=== PATIENT | male | born 1940 | race African-American/Black ===

== ENCOUNTER 2017-11-14 11:59 | Outpatient (CLI) | payer MEDICARE, MEDICAID ==
[2017-11-14 13:05] LABS: Hemoglobin 12.8 g/dL (14.0-18.0); Mean Corpuscular HGB CONC 32.1 g/dL (32.0-36.0); Mean Corpuscular Hemoglobin 22.9 pg (27.0-31.0); Mean Corpuscular Volume 71.4 fl (80.0-94.0); Mean Platelet Volume 8.6 fL (7.4-10.4); Platelet Count 234 thou/uL (130-400); RBC Distribution Width 13.3 % (11.5-14.5); Red Blood Cell (RBC) Count 5.58 mill/uL (4.70-6.10); White Blood Cell (WBC) Count 3.2 thou/uL (4.8-10.8)
[2017-11-14 13:17] LABS: Anion Gap 11 mmol/L (10-20); BUN (Urea Nitrogen) 11 mg/dL (8.4-25.7); Calc. Creatinine Clearance 0 mL/min (70-130); Calcium 9.9 mg/dL (7.8-10.44); Carbon Dioxide 26 mmol/L (23-31); Chloride 105 mmol/L (98-107); Estimated GFR-MDRD Greater than 90; Glucose 88 mg/dL (83-110); Potassium 4.2 mmol/L (3.5-5.1); Sodium 138 mmol/L (136-145)
== END 2017-11-14 12:00 | disposition home or self-care (01) ==
LOC: LABBT 11:59
PROVIDERS: ATTEND Internal Medicine Cardiovascular Disease
DX: Z01.812 Encounter for preprocedural laboratory examination (principal)
CPT/HCPCS: 80048; 85027

== ENCOUNTER → 2017-11-17 | Day surgery (SDC) | payer MEDICARE, MEDICAID ==
[2017-11-14 09:53] VITALS: BMI 21.4
[~2017-11-17] MED LIST: Diazepam 5 MG TAB ONE; Fentanyl 100 MCG/2 ML VIAL ONE; Iopamidol 370 76% 100 ML VIAL ONE; Lidocaine 1% (PF) 30 ML VIAL ONE; Midazolam HCl 2 mg/2 ml Vial ONE
== END ==
LOC: CCL 05:56
PROVIDERS: ATTEND Internal Medicine Cardiovascular Disease
PROC: 4A023N7 Measurement of Cardiac Sampling and Pressure, Left Heart, Percutaneous Approach (ICD-10-PCS; principal; 2017-11-17)
DX: I25.10 Atherosclerotic heart disease of native coronary artery without angina pectoris (principal); I10 Essential (primary) hypertension; E78.00 Pure hypercholesterolemia, unspecified; I25.2 Old myocardial infarction; Z79.899 Other long term (current) drug therapy; Z86.73 Personal history of transient ischemic attack (TIA), and cerebral infarction without residual deficits; Z82.49 Family history of ischemic heart disease and other diseases of the circulatory system
CPT/HCPCS: 76942; 93458; C1769; 99152; 99153; J1644; J2001; J2250; J3010

== ENCOUNTER 2017-11-25 05:34 | Inpatient (IN) | payer MEDICARE, MEDICAID ==
[2017-11-25] MEDS ORDERED: Albumin 5% 500 ML ONE (06:30)
[2017-11-25] MEDS ORDERED: Heparin 10,000 UNITS/1 ML VIAL 30,000 UNITS in Sodium Chloride 0.9% 1,000 ML FS SCH (06:45)
[2017-11-25] MEDS ORDERED: Midazolam HCl 2 mg/2 ml Vial ONE (06:47)
[2017-11-25] MEDS ORDERED: Fentanyl 100 MCG/2 ML VIAL ONE ×2 (06:47→07:08)
[2017-11-25] MEDS ORDERED: CEFAZOLIN/Water 2 GM/20 ML SYRINGE ONE (06:51)
[2017-11-25] MEDS ORDERED: Midazolam HCl 5 mg/5 ml Vial ONE (07:06)
[2017-11-25] MEDS ORDERED: Norepinephrine 8 MG/0.9% NS 0 ML ONE (07:07)
[2017-11-25] MEDS ORDERED: Nitroglycerin 50 MG/250 ML BOT 0 ML ONE (07:07)
[2017-11-25] MEDS ORDERED: Phenylephrine HCL 10 MG/ML VIAL ONE (07:07)
[2017-11-25] MEDS ORDERED: Vecuronium 10 MG VIAL ONE ×2 (07:07→11:20)
[2017-11-25] MEDS ORDERED: Promethazine HCl 25 MG/ML VIAL IM PRN (10:31)
[2017-11-25] MEDS ORDERED: Norepinephrine 8 MG/0.9% NS 250 ML IVPB PRN (10:31)
[2017-11-25] MEDS ORDERED: Post-Op Insulin Drip Protocol IVPB ONE (10:31)
[2017-11-25] MEDS ORDERED: Acetaminophen 325 MG TAB PO PRN (10:31)
[2017-11-25] MEDS ORDERED: Mag-Al 1200 mg/1200 mg/30 ML UDCUP PO PRN (10:31)
[2017-11-25] MEDS ORDERED: Magnesium 2 GM/NS 0.9% 100 ML 2 GM in Premix Bag 1 BAG IVPB SCH (10:31)
[2017-11-25] MEDS ORDERED: Bisacodyl 10 MG SUPP PR PRN (10:31)
[2017-11-25] MEDS ORDERED: Nitroglycerin 50 MG/250 ML BOT 250 ML IVPB PRN (10:31)
[2017-11-25] MEDS ORDERED: Ondansetron HCl/PF 4 MG/2 ML Vial IVP PRN (10:31)
[2017-11-25] MEDS ORDERED: Potassium Chloride 20 MEQ/100 ML PREMIX BAG IVPB PRN (10:31)
[2017-11-25] MEDS ORDERED: Morphine 4 MG/ML VIAL SLOW IVP PRN (10:31)
[2017-11-25] MEDS ORDERED: hydrALAZINE 20 MG/ML VIAL SLOW IVP PRN ×2 (10:31→19:21)
[2017-11-25] MEDS ORDERED: Hetastarch 6% 500 ML 500 ML IVPB PRN (10:31)
[2017-11-25] MEDS ORDERED: Bisacodyl 5 MG TAB PO PRN (10:31)
[2017-11-25] MEDS ORDERED: Guaifenesin DM 100-10/5 ML UDCUP PO PRN (10:31)
[2017-11-25] MEDS ORDERED: Fentanyl 100 MCG/2 ML VIAL SLOW IVP PRN (10:31)
[2017-11-25 10:40] LABS: Actual Bicarbonate (HCO3a) 21.1 mEq/L (22-26); Base Excess (BEa) -2.7 mEq/L (0 (+/-) 2.5); CO2 Tension 32.2 mmHg (35.0-45.0); Hematocrit-ABG 27.9 % (42.0-52.0); Hemoglobin (Hb) 8.9 g/dL (14.0-18.0); O2 Tension (PaO2) 341.3 mmHg (80.0-100.0); pH, Arterial 7.43 (7.35-7.45)
[2017-11-25 10:42] LABS: Calcium, Ionized 1.2 mmol/L (1.12-1.30); Puncture Site LINE
[2017-11-25] MEDS ORDERED: Dextrose 5% in Water 1,000 ML IV PRN (10:42)
[2017-11-25] MEDS ORDERED: Dextrose 50% Abboject 50 ML SYRINGE SLOW IVP PRN (10:42)
--- NOTE | 2017-11-25 10:49 | OP ---
DATE OF PROCEDURE: 11/25/2017 PREOPERATIVE DIAGNOSES: Coronary artery disease/hypertension/hyperlipidemia/status post-remote myoca rdial infarction with stenting of the LAD and right coronary artery at that time. POSTOPERATIVE DIAGNOSES: Coronary artery disease/hypertension/hyperlipidemia/status post-remote myoc ardial infarction with stenting of the LAD and right coronary artery at that time. PROCEDURES PERFORMED: Coronary artery bypass grafting x2: 1. Left internal mammary artery to 2.5 mm LAD - good conduit and target. 2. Reverse saphenous vein to 2.5 mm RCA - good conduit and target. SURGEON: Dr. Dylan Natarajan and Dr. Jj Ambriz. ANESTHESIA: General endotracheal - Dr. Rekha Yusuf. PUMP TIME: Forty minutes. CROSS-CLAMP TIME: Twenty minutes. LOW CORE TEMPERATURE: 34 degrees Celsius. TRAINING INTERN: Yola Bourne. DRAINS: 24-[place] chest tubes x2. DRIPS: None. TRANSFUSIONS: None. DESCRIPTION OF PROCEDURE: After consent was obtained, the patient was brought to the operating room and placed in supine position on the operating room table. Appropriate anesthetic monitor was placed and general endotracheal anesthesia induced. Chest, abdomen, and legs were prepped and draped in a usual sterile fashion. Greater saphenous vein was harvested from the left thigh through skip incisio ns. Wounds were irrigated and closed in layers. Median sternotomy was performed. Left internal manjit paul artery was harvested as a pedicle graft. The patient was systemically heparinized. Distal pedi deni was divided and infused with papaverine. Thymic fat and pericardium were divided with electrocau shawn. Pericardial stay sutures were placed. After adequate heparinization, aortic and atrial cannul ation was performed. The patient underwent retrograde prime. The patient was placed on cardiopulmon aster bypass. Distal targets were marked. Aortic cross-clamp was applied and antegrade sanguinous car dioplegic arrest obtained. One liter of antegrade cold [place] cardioplegia was given. Topical col d solution was used. Reverse saphenous vein was anastomosed to the distal RCA in end-to-side fashion with running 7-0 Prolene suture. Anastomosis tested and was hemostatic. Mammary artery was brought through a window in the pericardium and anastomosed to the LAD in end-to-side fashion with running 7 -0 Prolene suture. Anastomosis was tested and was hemostatic. On release of the mammary clamp, ther e was good hemostasis and good distal flow. Pedicle was secured with interrupted 6-0 Prolene suture. Cross-clamp was removed and partial occluding clamp placed. Saphenous vein was anastomosed to punc h site in the aorta with running 6-0 Prolene suture. Partial occluding clamp was removed and grafts deaired. Anastomoses were inspected for hemostasis, which was good. The patient was warmed and wean ed from cardiopulmonary bypass. After resumption of sinus rhythm, good hemodynamics, temperature gre ater than 36.5, bypass was discontinued. Transfusions were given. Protamine was administered. Deca nnulation was performed. Pursestring sutures secured. The 24-[place] chest tubes were placed in the mediastinum x2. After adequate hemostasis had been obtained, sternum was treated with vancomycin pas te. Sternum was closed with #7 wire. Sternum was treated with platelet-rich plasma and wires twiste d. Wounds were irrigated, treated with platelet-poor plasma, and closed in multiple layers. Needle, sponge, and instrument counts were all reported as correct at the end of the procedure. The patient was transferred to the intensive care unit in stable, but critical condition.
[2017-11-25 10:56] LABS: INR-International Normal Ratio 1.4; PTT 32.7 SEC (22.9-36.1)
[2017-11-25 11:06] LABS: Anion Gap 11 mmol/L (10-20); BUN (Urea Nitrogen) 14 mg/dL (8.4-25.7); Calc. Creatinine Clearance 80 mL/min (70-130); Calcium 8.4 mg/dL (7.8-10.44); Carbon Dioxide 20 mmol/L (23-31); Chloride 112 mmol/L (98-107); Estimated GFR-MDRD Greater than 90; Glucose 89 mg/dL (83-110); Potassium 3.8 mmol/L (3.5-5.1); Sodium 139 mmol/L (136-145)
[2017-11-25 11:13] LABS: #Eosinphils 0.1 thou/uL (0.0-0.7); #Lymphocytes 1.3 thou/uL (1.20-3.40); #Monocytes 0.4 thou/uL (0.11-0.59); #Neutrophils 4.5 thou/uL (1.40-6.50); %Basophils 0.7 % (0.0-1.0); %Lymphocytes 20.7 % (21.0-51.0); %Monocytes 6.1 % (0.0-10.0); %Neutrophils 71.5 % (42.0-75.0); Hemoglobin 9.2 g/dL (14.0-18.0); Mean Corpuscular HGB CONC 31.8 g/dL (32.0-36.0); Mean Corpuscular Hemoglobin 23.1 pg (27.0-31.0); Mean Corpuscular Volume 72.7 fl (80.0-94.0); Mean Platelet Volume 9.9 fL (7.4-10.4); Platelet Count 119 thou/uL (130-400); RBC Distribution Width 13.3 % (11.5-14.5); Red Blood Cell (RBC) Count 3.98 mill/uL (4.70-6.10); White Blood Cell (WBC) Count 6.3 thou/uL (4.8-10.8)
[2017-11-25] MEDS ORDERED: Protamine Sulfate 250 MG/25 ML VIAL ONE (11:20)
[2017-11-25] MEDS ORDERED: Calcium Chloride 1 GM/10 ML Abboject SYRINGE ONE (11:20)
[2017-11-25] MEDS ORDERED: Sodium Bicarb 50 MEQ/50 ML VIAL ONE (11:20)
[2017-11-25] MEDS ORDERED: Potassium Chloride 60 MEQ/30 ML VIAL ONE (11:20)
[2017-11-25] MEDS ORDERED: Magnesium 5 GM/10 ML VIAL ONE (11:20)
[2017-11-25] MEDS ORDERED: Heparin 30,000 units/30 ml VIAL ONE (11:20)
[2017-11-25] MEDS ORDERED: PROPOFOL 200 MG/20 ML VIAL ONE (11:20)
[2017-11-25] MEDS ORDERED: Aminocaproic Acid 5 GM/20 ML VIAL ONE (11:20)
[2017-11-25] MEDS ORDERED: Heparin 5,000 UNITS/ML VIAL ONE (11:20)
[2017-11-25] MEDS ORDERED: Lidocaine 2% PF 100 mg/5 ml Syringe ONE (11:20)
[2017-11-25] MEDS ORDERED: Dexamethasone 20 MG/5 ML VIAL ONE (11:20)
[2017-11-25] MEDS ORDERED: Lidocaine 1% PF 5 ML VIAL ONE (11:20)
[2017-11-25] MEDS ORDERED: PHENYLEPHRINE-NS 100 MCG/ML 10 ML SYRINGE ONE (11:20)
[2017-11-25] MEDS ORDERED: Thrombin 5000 UNITS/5 ML VIAL ONE (11:20)
[2017-11-25] MEDS ORDERED: Papaverine 60 MG/2 ML VIAL ONE (11:20)
[2017-11-25] MEDS: NS 0.9% w/ 20 MEQ KCL 1,000 ML IV SCH ×2 (11:47→21:11)
--- NOTE | 2017-11-25 12:37 | RAD ---
SINGLE VIEW CHEST: Date: 11/25/17 COMPARISON: None. HISTORY: Open heart surgery. FINDINGS: Single view of the chest shows normal sized cardiomediastinal silhouette. The patient is status post sternotomy. An endotracheal tube is seen with its tip between the clavicles. A right-sided central ve nous catheter is seen with its tip at the superior vena cava. A mediastinal drain and left chest tube are in good position. No pneumothorax seen. No evidence of consolidation, mass, or pleural effusion. IMPRESSION: Appropriate position of lines and tubes status post sternotomy. POS: [facility]
[2017-11-25] MEDS: CEFAZOLIN/Water 2 GM/20 ML SYRINGE SLOW IVP SCH ×2 (14:51→23:28)
[2017-11-25] MEDS: Insulin Regular 300 UNITS/3 ML VIAL SC PRN ×2 (15:00→21:08)
[2017-11-25 15:14] LABS: Actual Bicarbonate (HCO3a) 19.7 mEq/L (22-26); Base Excess (BEa) -4.6 mEq/L (0 (+/-) 2.5); CO2 Tension 32.7 mmHg (35.0-45.0); O2 Tension (PaO2) 209.4 mmHg (80.0-100.0)
[2017-11-25 15:15] LABS: ALV-art Gradient 34.925 (0-20); Calcium, Ionized 1.2 mmol/L (1.12-1.30); Hematocrit-ABG 30.4 % (42.0-52.0); Hemoglobin (Hb) 9.4 g/dL (14.0-18.0); Puncture Site LINE
[2017-11-25] MEDS: Fentanyl 100 MCG/2 ML VIAL SLOW IVP PRN ×3 (15:44→22:26)
[2017-11-25 16:29] LABS: Hemoglobin 10.1 g/dL (14.0-18.0)
[2017-11-25 16:51] LABS: Potassium 4.2 mmol/L (3.5-5.1)
[2017-11-25] MEDS: HYDROcodone/Acetaminophen 5/325 mg Tablet PO PRN (19:42)
[2017-11-25] MEDS ORDERED: Metoprolol Tartrate 25 MG TAB PO SCH (21:00)
[2017-11-25] MEDS ORDERED: Famotidine 40 MG/4 ML VIAL SLOW IVP SCH (21:00)
[2017-11-26 05:42] LABS: #Lymphocytes 1.3 thou/uL (1.20-3.40); #Monocytes 1.4 thou/uL (0.11-0.59); #Neutrophils 8.8 thou/uL (1.40-6.50); %Basophils 0.3 % (0.0-1.0); %Lymphocytes 11.1 % (21.0-51.0); %Monocytes 12.5 % (0.0-10.0); %Neutrophils 76.2 % (42.0-75.0); Hemoglobin 10.5 g/dL (14.0-18.0); Mean Corpuscular HGB CONC 31.7 g/dL (32.0-36.0); Mean Corpuscular Hemoglobin 22.9 pg (27.0-31.0); Mean Corpuscular Volume 72.2 fl (80.0-94.0); Mean Platelet Volume 9.8 fL (7.4-10.4); Platelet Count 173 thou/uL (130-400); RBC Distribution Width 13.8 % (11.5-14.5); Red Blood Cell (RBC) Count 4.61 mill/uL (4.70-6.10); White Blood Cell (WBC) Count 11.5 thou/uL (4.8-10.8)
[2017-11-26 05:49] LABS: Anion Gap 7 mmol/L (10-20); BUN (Urea Nitrogen) 9 mg/dL (8.4-25.7); Calc. Creatinine Clearance 76 mL/min (70-130); Calcium 8.9 mg/dL (7.8-10.44); Carbon Dioxide 27 mmol/L (23-31); Chloride 108 mmol/L (98-107); Estimated GFR-MDRD Greater than 90; Glucose 108 mg/dL (83-110); Potassium 4.3 mmol/L (3.5-5.1); Sodium 138 mmol/L (136-145)
[2017-11-26] MEDS: Losartan 25 MG TAB PO SCH (08:29)
[2017-11-26] MEDS: Metoprolol Tartrate 25 MG TAB PO SCH ×2 (08:33→21:18)
[2017-11-26] MEDS: HYDROcodone/Acetaminophen 5/325 mg Tablet PO PRN ×2 (08:46→14:53)
--- NOTE | 2017-11-26 08:46 | RAD ---
CHEST ONE VIEW: History: Heart surgery. Follow up. Comparison: 11-25-17 FINDINGS: Cardiac silhouette is magnified by projection. Pulmonary vasculature is unremarkable. Lungs remain hy perinflated. Mediastinum is midline with post-operative changes, radiopaque appearing. Left thoracost tyrell tube and right internal jugular central venous catheter remain in place. Endotracheal catheter is no longer visible. Atelectasis at the right upper lobe has nearly completely resolved. Cardiac monit or leads overlie the chest. IMPRESSION: 1. Interval extubation. Improved aeration of the right upper lobe. 2. COPD. POS: [facility]
[2017-11-26] MEDS ORDERED: Atorvastatin Calcium 20 MG TAB PO SCH (09:00)
[2017-11-26] MEDS ORDERED: Aspirin 325 MG TAB PO SCH (09:00)
[2017-11-26] MEDS ORDERED: Magnesium 2 GM/NS 0.9% 100 ML 2 GM in Premix Bag 1 BAG IVPB SCH (09:00)
[2017-11-26] MEDS: CEFAZOLIN/Water 2 GM/20 ML SYRINGE SLOW IVP SCH (09:36)
--- NOTE | 2017-11-26 10:04 | PRG ---
DATE OF SERVICE: 11/26/2017 SUBJECTIVE: Mr. Mcmillan is doing well. He is awake and alert, sitting up in the chair. PHYSICAL EXAMINATION: VITAL SIGNS: Blood pressure is 107/61, pulse 73. LUNGS: Clear. CARDIAC: Normal S1, normal S2. ABDOMEN: Soft, nontender. EXTREMITIES: No edema. On the monitor he does have some concave up ST elevation, probably some pericardial inflammation. ASSESSMENT: 1. Status post bypass surgery, doing well. 2. Probably some pericardial inflammation on the EKG. PLAN: 1. Watch for atrial fibrillation. 2. Continue blood pressure medicines including beta rebecca. 3. Statins. 4. Aspirin.
[2017-11-27] MEDS: HYDROcodone/Acetaminophen 5/325 mg Tablet PO PRN ×3 (00:35→19:59)
[2017-11-27 04:44] LABS: #Lymphocytes 1.5 thou/uL (1.20-3.40); #Monocytes 1.1 thou/uL (0.11-0.59); #Neutrophils 6.2 thou/uL (1.40-6.50); %Basophils 0.1 % (0.0-1.0); %Eosinophils 0.2 % (0.0-10.0); %Lymphocytes 17.4 % (21.0-51.0); %Neutrophils 70.3 % (42.0-75.0); Hemoglobin 9.5 g/dL (14.0-18.0); Mean Corpuscular HGB CONC 32.6 g/dL (32.0-36.0); Mean Corpuscular Hemoglobin 23.1 pg (27.0-31.0); Mean Corpuscular Volume 70.8 fl (80.0-94.0); Mean Platelet Volume 9.3 fL (7.4-10.4); Platelet Count 139 thou/uL (130-400); RBC Distribution Width 13.5 % (11.5-14.5); Red Blood Cell (RBC) Count 4.12 mill/uL (4.70-6.10); White Blood Cell (WBC) Count 8.9 thou/uL (4.8-10.8)
[2017-11-27 04:59] LABS: Anion Gap 5 mmol/L (10-20); BUN (Urea Nitrogen) 13 mg/dL (8.4-25.7); Calc. Creatinine Clearance 73 mL/min (70-130); Calcium 8.8 mg/dL (7.8-10.44); Carbon Dioxide 32 mmol/L (23-31); Chloride 104 mmol/L (98-107); Estimated GFR-MDRD Greater than 90; Glucose 109 mg/dL (83-110); Potassium 4.4 mmol/L (3.5-5.1); Sodium 137 mmol/L (136-145)
[2017-11-27] MEDS ORDERED: Bisacodyl 5 MG TAB PO PRN (07:32)
[2017-11-27] MEDS ORDERED: Guaifenesin DM 100-10/5 ML UDCUP PO PRN (07:32)
[2017-11-27] MEDS ORDERED: diphenhydrAMINE 25 MG CAP PO PRN (07:32)
[2017-11-27] MEDS ORDERED: Zolpidem Tartrate 5 MG TAB PO PRN (07:32)
[2017-11-27] MEDS ORDERED: Bisacodyl 10 MG SUPP PR PRN (07:32)
[2017-11-27] MEDS ORDERED: Mag-Al 1200 mg/1200 mg/30 ML UDCUP PO PRN (07:32)
[2017-11-27] MEDS ORDERED: Nitroglycerin 0.4 MG TAB (25 Tab Bottle) SL PRN (07:32)
[2017-11-27] MEDS ORDERED: Artificial Tears 18 DROP/0.9 ML EA EYE PRN (07:32)
[2017-11-27] MEDS ORDERED: Mineral Oil ENEMA PR PRN (07:32)
[2017-11-27] MEDS: Atorvastatin Calcium 10 MG TAB PO SCH (07:55)
[2017-11-27] MEDS: Aspirin 81 mg Enteric Coated Tablet PO SCH (07:55)
[2017-11-27] MEDS: Losartan 25 MG TAB PO SCH (08:53)
--- NOTE | 2017-11-27 08:55 | PRG ---
DATE OF SERVICE: 11/27/2017 Mr. Mcmillan feels somewhat weak. He is really not getting up and exerting himself much. PHYSICAL EXAMINATION: VITAL SIGNS: Blood pressure is 122/63, pulse is 100, there are very frequent PAC's. LUNGS: Clear. CARDIAC: Normal S1, normal S2 with frequent PACs. ABDOMEN: Soft, nontender. EXTREMITIES: No edema. ASSESSMENT: 1. Status post bypass surgery. 2. Frequent premature atrial contractions. 3. Coronary artery disease. PLAN: 1. Change to long-acting beta blockers. 2. Losartan. 3. Aspirin. 4. Try to increase the patient's activity level.
--- NOTE | 2017-11-27 09:39 | RAD ---
AP VIEW CHEST: Date: 11/27/17 INDICATION: History of open heart surgery. COMPARISON: Prior study dated 11/26/17. IMPRESSION: Left-sided thoracostomy tube and mediastinal drain have been removed. The right subclavian central ve nous catheter is unchanged in position. Cardiomegaly has worsened from the prior exam. There is worse nestor pulmonary vascular congestion. There are tiny bilateral pleural effusions. No pneumothorax is ev ident. Cholecystectomy clips are seen within the right upper quadrant. No acute osseous abnormality i s evident. IMPRESSION: 1. Worsening cardiomegaly with pulmonary vascular congestion and small bilateral pleural effusions m ay reflect cardiac decompensation or volume overload. 2. Removal of mediastinal drain and left-sided thoracostomy tube. 3. Persistent right IJ central venous catheter. POS: [facility]
[2017-11-28] MEDS: HYDROcodone/Acetaminophen 5/325 mg Tablet PO PRN (03:21)
--- NOTE | 2017-11-28 07:48 | DIS ---
DIAGNOSES: 1. Coronary artery disease. 2. Hypertension. 3. Dyslipidemia. PROCEDURES: Elective coronary bypass grafting x2 - 1) Left internal mammary artery to left anterio r descending; 2) reversed saphenous vein to RCA. DESCRIPTION OF HOSPITAL STAY: Mr. Mcmillan was admitted for elective coronary bypass grafting. He has done well afterwards. He has had no rhythm disturbances. At the time of discharge, he is ambulator y, tolerating a regular diet, having good bowel and bladder function. Incisions are clean and dry wi thout evidence of infection. DISCHARGE MEDICATIONS: 1. Aspirin 81 mg every day. 2. Lipitor 20 mg every day. 3. Plavix 75 mg every day. 4. Cozaar 50 mg daily. 5. Metoprolol 50 mg every day. 6. Protonix 40 mg daily. 7. Wakeman 5/325 1-2 q.6 hours p.r.n. pain. FOLLOWUP: Follow up is with me in [address] Hernandez in a month.
--- NOTE | 2017-11-28 09:09 | PRG ---
DATE OF SERVICE: 11/28/2017 Mr. Mcmillan is out of the Intensive Care Unit, up on the floor. He is in bed. No chest pain or press ure. PHYSICAL EXAMINATION: VITAL SIGNS: Blood pressure 119/70, pulse 90, it is regular. LUNGS: Clear. CARDIAC: Normal S1 and S2. ABDOMEN: Soft, nontender. EXTREMITIES: No edema. ASSESSMENT: 1. Coronary artery disease, status post bypass surgery. 2. Hypertension with relatively low blood pressure for him. PLAN: 1. The patient needs to try to get up some more and get around. 2. I think it will probably need to be until tomorrow until he can go home. He really has not been up out of bed much.
[2017-11-28] MEDS: Losartan 25 MG TAB PO SCH (09:59)
[2017-11-28] MEDS: Aspirin 81 mg Enteric Coated Tablet PO SCH (09:59)
[2017-11-28] MEDS: Atorvastatin Calcium 10 MG TAB PO SCH (09:59)
[2017-11-28 16:05] VITALS: BMI 19.1
[2017-11-29] MEDS: Aspirin 81 mg Enteric Coated Tablet PO SCH (09:43)
[2017-11-29] MEDS: Losartan 25 MG TAB PO SCH (09:43)
[2017-11-29] MEDS: Atorvastatin Calcium 10 MG TAB PO SCH (09:43)
--- NOTE | 2017-11-29 12:01 | PDOC.CTH ---
Cardiology Progress Note - Subjective The pt seen and examined. No overnight events. No cardiac complaints. He has soreness to MSI, but no cardiac complaints. He has walked with PTs without difficulties. - Objective Vital Signs Temp Pulse Pulse Pulse Resp BP BP 11/29/17 08:39 116 H 98 119/80 114/66 11/29/17 07:50 99.7 F H 99 18 11/29/17 03:49 98.6 F 108 H 18 BP BP Pulse Ox Pulse Ox Pulse Ox 11/29/17 08:39 100 97 11/29/17 07:50 115/68 11/29/17 03:49 105/60 95 Weight 126 lb 2 oz 11/28/17 11/29/17 11/30/17 06:59 06:59 06:59 Intake Total 2120 Output Total 1400 Balance 720 - Physical Examination General/Neuro: alert & oriented x3 Neck: no JVD present Lungs: CTA (diminished at bases) Heart: RRR Abdomen: soft Extremities: other: - Telemetry Telemetry Rhythm: SR 90-100s - Labs Result Diagrams: 11/27/17 04:40 11/27/17 04:40 - Assessment/Plan 1. S/p CABG x2 with FARMER-LAD and reverse saph-RCA on 11/25/17 - stable. On ASA 81mg, BBlocker, ARE, and Statin, 2. HTN - stable MAR reviewed * From cardiac standpoint, the pt is stable to d/jaziel home. He stated he has someone to take care of him. He will call and f/u with Dr Hernandez's office within 2-4wks. Review of Systems - Review of Systems Constitutional: reports: no symptoms reported EENTM: reports: no symptoms reported Respiratory: reports: no symptoms reported Cardiac (ROS): reports: no symptoms reported ABD/GI: reports: no symptoms reported : reports: no symptoms reported Musculoskeletal: reports: no symptoms reported Skin: reports: no symptoms reported
[2017-11-29 12:17] VITALS: TEMP 97.2
[2017-11-29 13:35] VITALS: BP 116/61
[2017-12-02 10:21] LABS: Actual Bicarbonate (HCO3a) 21.8 mEq/L (22-26); Analyzer IN Cardio OR; Base Excess (BEa) -1.5 mEq/L (0 (+/-) 2.5); CO2 Tension 30.6 mmHg (35.0-45.0); Calcium, Ionized 1.4 mmol/L (1.12-1.30); Hematocrit-ABG 22.9 % (42.0-52.0); Hemoglobin (Hb) 7.1 g/dL (14.0-18.0); O2 Tension (PaO2) 494.4 mmHg (80.0-100.0); Puncture Site ALINE; pH, Arterial 7.47 (7.35-7.45)
[2017-12-02 10:28] LABS: Actual Bicarbonate (HCO3a) 21.4 mEq/L (22-26); Base Excess (BEa) -1.6 mEq/L (0 (+/-) 2.5); CO2 Tension 30.3 mmHg (35.0-45.0); Hematocrit-ABG 33.3 % (42.0-52.0); O2 Tension (PaO2) 498.5 mmHg (80.0-100.0); pH, Arterial 7.47 (7.35-7.45)
[2017-12-02 10:29] LABS: Analyzer IN Cardio OR; Calcium, Ionized 1.1 mmol/L (1.12-1.30); Hemoglobin (Hb) 10.3 g/dL (14.0-18.0); Puncture Site ALINE
[2017-12-02 10:30] LABS: CO2 Tension 33.3 mmHg (35.0-45.0); pH, Arterial 7.44 (7.35-7.45)
[2017-12-02 10:31] LABS: Actual Bicarbonate (HCO3a) 22.2 mEq/L (22-26); Analyzer IN Cardio OR; Base Excess (BEa) -1.5 mEq/L (0 (+/-) 2.5); Calcium, Ionized 1.1 mmol/L (1.12-1.30); Hematocrit-ABG 32.3 % (42.0-52.0)
[2017-12-02 10:32] LABS: Puncture Site ALINE
[2017-12-02 10:33] LABS: Actual Bicarbonate (HCO3v) 25 mEq/L (22-26); Analyzer IN Cardio OR; Base Excess 0.1 mEq/L (0 (+/- 2.5)); Hematocrit-VBG 24.7 % (37-51); Hemoglobin (Hb) 7.5 g/dL (12.6-17.4); pH (venous) 7.37 (7.35-7.45)
[2017-12-02 10:34] LABS: Calcium, Ionized 1.02 mmol/L (1.16-1.32); Chloride (ABG LAB) 101 mmol/L (98-106); Potassium - ABG Lab 3.5 mmol/L (3.70-5.30)
[2017-12-02 10:34] LABS: Actual Bicarbonate (HCO3a) 24.5 mEq/L (22-26); CO2 Tension 40.5 mmHg (35.0-45.0); O2 Tension (PaO2) 429.7 mmHg (80.0-100.0)
[2017-12-02 10:35] LABS: Analyzer IN Cardio OR; Base Excess (BEa) -0.2 mEq/L (0 (+/-) 2.5); Hematocrit-ABG 24.6 % (42.0-52.0); Hemoglobin (Hb) 7.5 g/dL (14.0-18.0); Puncture Site ALINE
[2017-12-02 10:36] LABS: Actual Bicarbonate (HCO3a) 21.6 mEq/L (22-26); CO2 Tension 32.2 mmHg (35.0-45.0); Hematocrit-ABG 26.9 % (42.0-52.0); Hemoglobin (Hb) 8.6 g/dL (14.0-18.0); O2 Tension (PaO2) 533.8 mmHg (80.0-100.0); pH, Arterial 7.45 (7.35-7.45)
[2017-12-02 10:37] LABS: Analyzer IN Cardio OR; Calcium, Ionized 1.2 mmol/L (1.12-1.30); Puncture Site ALINE
== END 2017-11-29 15:05 | disposition home or self-care (01) | DRG 236 ==
LOC: SURG A 05:34 → CCU 09:39 → 2NO 11-28 03:02
PROVIDERS: ADMIT Thoracic Surgery (Cardiothoracic Vascular Surgery); ATTEND Thoracic Surgery (Cardiothoracic Vascular Surgery)
PROC: 02100Z9 Bypass Coronary Artery, One Artery from Left Internal Mammary, Open Approach (ICD-10-PCS; principal; 2017-11-25)
PROC: 021009W Bypass Coronary Artery, One Artery from Aorta with Autologous Venous Tissue, Open Approach (ICD-10-PCS; 2017-11-25)
PROC: 06BQ0ZZ Excision of Left Saphenous Vein, Open Approach (ICD-10-PCS; 2017-11-25)
PROC: 5A1221Z Performance of Cardiac Output, Continuous (ICD-10-PCS; 2017-11-25)
DX: I10 Essential (primary) hypertension; E78.5 Hyperlipidemia, unspecified; Z95.5 Presence of coronary angioplasty implant and graft; I25.2 Old myocardial infarction; I25.10 Atherosclerotic heart disease of native coronary artery without angina pectoris
CPT/HCPCS: 36415; 36416; 36430; 71045; 80048; 82805; 85025; 85610; 85730; 86850; 86900; 86901; 93005; 93010; 93798; 94002; 94150; J0360; J1100; J1642; J1644; J1815; J2001; J2250; J2270; J2370; J2405; J2440; J2704; J2720; J3010; J3370; J3475; J3480; J7050; P9045; S0017

== ENCOUNTER 2018-08-26 10:25 | Emergency (ER) | payer MEDICARE, MEDICAID ==
[2018-08-26 11:34] LABS: #Eosinphils 0.1 thou/uL (0.0-0.7); #Lymphocytes 0.9 thou/uL (1.20-3.40); #Monocytes 0.5 thou/uL (0.11-0.59); #Neutrophils 3.1 thou/uL (1.40-6.50); %Basophils 0.4 % (0.0-1.0); %Eosinophils 1.3 % (0.0-10.0); %Lymphocytes 19.9 % (21.0-51.0); %Monocytes 10.4 % (0.0-10.0); Hemoglobin 12.6 g/dL (14.0-18.0); Mean Corpuscular Hemoglobin 22.4 pg (27.0-31.0); Mean Platelet Volume 9.6 fL (7.4-10.4); Platelet Count 262 thou/uL (130-400); RBC Distribution Width 14.5 % (11.5-14.5); Red Blood Cell (RBC) Count 5.62 mill/uL (4.70-6.10); White Blood Cell (WBC) Count 4.5 thou/uL (4.8-10.8)
[2018-08-26] MEDS ORDERED: Nitroglycerin 2% Ointment 1 INCH/1 GM Packet ONE (11:49)
[2018-08-26 11:57] LABS: Hypochromia SLIGHT = 6-15 cells (100X) (0-5/hpf); MDiff Complete? YES; Microcytosis MODERATE=15-30 cells (100X) (0-5/hpf); Polychromasia SLIGHT = 2-3 cells (100X) (0-2/hpf); Target Cells SLIGHT = 2-5 cells (100X) (0-1/hpf)
[2018-08-26 11:58] LABS: ALT (SGPT) 12 U/L (8-55); AST (SGOT) 22 U/L (5-34); Albumin 4.5 g/dL (3.4-4.8); Alkaline Phosphatase 82 U/L (40-150); Anion Gap 14 mmol/L (10-20); BUN (Urea Nitrogen) 10 mg/dL (8.4-25.7); Bilirubin, Total 0.5 mg/dL (0.2-1.2); CK (CPK) 96 U/L (30-200); Calc. Creatinine Clearance 0 mL/min (70-130); Carbon Dioxide 26 mmol/L (23-31); Chloride 102 mmol/L (98-107); Estimated GFR-MDRD Greater than 90; Globulin 3.6 g/dL (2.4-3.5); Glucose 96 mg/dL (83-110); Potassium 4.8 mmol/L (3.5-5.1); Protein, Total 8.1 g/dL (5.8-8.1); Sodium 137 mmol/L (136-145)
--- NOTE | 2018-08-26 12:02 | RAD ---
PORTABLE AP CHEST RADIOGRAPH: Date: 08-26-18 History: Chest pain. Comparison: 11-27-17 FINDINGS: The cardiac silhouette and pulmonary vasculature are within normal limits. Post-surgical changes rela justin to CABG are again present. Central venous catheter noted on the prior study is no longer seen. Th ere has been resolution of pleural and parenchymal changes left lung base as well as resolution of pu lmonary vascular congestion. The lungs are clear. Pulmonary vasculature is within normal limits. No o ther interval change. IMPRESSION: No acute cardiopulmonary process. POS: [facility]
== END 2018-08-26 15:04 | disposition home or self-care (01) ==
LOC: ERS 10:25
DX: R07.89 Other chest pain (principal); E78.5 Hyperlipidemia, unspecified; I10 Essential (primary) hypertension
CPT/HCPCS: 71045; 80053; 82550; 84484; 85025; 93005